=== PATIENT | female | born 1945 | race Hispanic/Latino ===

== ENCOUNTER → 2018-04-20 | Day surgery (SDC) | payer MEDICARE, OTHER ==
[2018-04-10 15:46] LABS: BASOPHILS % 0.4 % (0.0-1.0); EOSINOPHILS # (AUTO) 0.1 (0.0-0.4); EOSINOPHILS % 1.1 % (0.0-6.0); HEMOGLOBIN 14.4 g/dL (12.0-16.0); LYMPHOCYTES # (AUTO) 2.9 (1.0-3.2); LYMPHOCYTES % 40.3 % (18.0-39.1); MEAN CORPUSCULAR HEMOGLOBIN 29.9 pg (28-32); MEAN CORPUSCULAR HGB CONC 32.7 g/dL (31-35); MEAN CORPUSCULAR VOLUME 91.3 fL (81-99); MONOCYTES # (AUTO) 0.4 (0.2-0.8); MONOCYTES % 5.5 % (4.4-11.3); NEUTROPHILS # (AUTO) 3.7 (2.1-6.9); NEUTROPHILS % 52.6 % (38.7-80.0); PLATELET COUNT 241 x10e3/uL (140-360); RED BLOOD COUNT 4.82 x10e6/uL (3.6-5.1); RED CELL DISTRIBUTION WIDTH 12.3 % (11.7-14.4)
[2018-04-10 16:09] LABS: BLOOD UREA NITROGEN 13 mg/dL (7-26); BUN/CREATININE RATIO 16 (6-25); CALCIUM 9.8 mg/dL (8.4-10.2); CARBON DIOXIDE 30 mmol/L (22-29); CHLORIDE 102 mmol/L (98-107); CREATININE, SERUM 0.82 mg/dL (0.57-1.11); EST GLOMERULAR FILTRATION RATE > 60 ML/MIN (60-); GLUCOSE 90 mg/dL (74-118); SODIUM 143 mmol/L (136-145)
[~2018-04-20] MED LIST: ASPIRIN81 MG PO; BALANCED SALT SOLN (OPTH) 15 ML BTL IO ONE; BUPIVACAINE HC 0.75% PF 10ML VIAL INJ ONE; CALTRATE 600 W1 EACH PO; CALTRATE PLUS1 EACH; CENTRUM COMPLE1 EACH PO; CHONDR SU A NA/HYALUR SOD 1 EACH KIT IO ONE; CYCLOPENTOLATE HCL 2% OPTH SOLN 2 ML BTL OP ONE; EPINEPHRINE HCL 1:1000 1ML 1 MG/ML AMP ONE; FISH OIL PO; GATIFLOXACIN(OPTH) 5 ML LIQD ONE; INCRUSE INH; LIDOCAINE 2% /EPINEPHRINE 20 ML SDV INJ ONE; LIDOCAINE HCL 2% LOCAL INJ 5 ML SDV VIAL INJ ONE; LIDOCAINE HCL-PF 4% 40 MG/1 ML 5ML AMP ONE; LOSARTAN POTASS25 MG PO; METOPROLOL TART25 MG PO; MIDAZOLAM HCL 2 MG/2 ML VIAL ONE; OXYBUTYNIN CHLOR5 MG PO; PHENYLEPHRINE HCL 2 ML DROPS ONE; PILOCARPINE HCL(OPTH) 15 ML LIQD ONE; POVIDONE IODINE 5% (OPTH) 30 ML BTL ONE; PRAVASTATIN SOD40 MG PO; PROPOFOL IV EMULSION 10 MG/ML 20 ML VIAL ONE; TOBRAMYCIN/DEXAMETHASONE(OPTH) 3.5 GM TUBE ONE; VITAMIN D3 PO
--- OUTSIDE RECORDS SUMMARY | 2018-04-20 05:52 | XMS REPORT | Summary of Care ---
Author Author [facility] Organization [facility] Address Unknown Phone Unavailable Encounter HQ Encntr_kell(FIN) [id number] Date(s): 10/04/16 - 10/04/16 [facility] [address] [phone] [phone] Discharge Disposition: Home or Self Care Attending Physician: Noam Rojas MD Vital Signs No data available for this section Problem List No data available for this section Allergies, Adverse Reactions, Alerts No data available for this section Medications No data available for this section Results No data available for this section Immunizations No data available for this section Procedures No data available for this section Social History No data available for this section Assessment and Plan No data available for this section
--- OUTSIDE RECORDS SUMMARY | 2018-04-20 05:52 | XMS REPORT | Continuity of Care Document ---
Author Author [facility] Address Unknown Phone Unavailable Problems Problem Status Onset Date Classification Date Reported Comments Source Pain in left knee 03/30/2017 06/30/2017 QUE Young M25.562 - PAIN IN LEFT KNEE Active 03/24/2017 QUE Young Medications Medication Details Route Status Patient Instructions Ordering Provider Order Date Source Allergies, Adverse Reactions, Alerts Substance Category Reaction Severity Reaction type Status Date Reported Comments Source Immunizations Immunization Date Given Site Status Last Updated Comments Source Results Order Name Results Value Reference Range Date Interpretation Comments Source Knee 1-2 Views unilateral DX Knee 1-2 Views unilateral DX CLINICAL HISTORY : , - M25.562 Pain in left knee EXAM : 2 views of the left knee 03/24/2017 11:21 AM [employer] COMPARISON : none FINDINGS : There is no acute fracture or dislocation. Suspected generalized osteopenia. There is no focal soft tissue swelling. Suspected small suprapatellar effusion. The bony alignment is normal. IMPRESSION: No acute fracture or dislocation. Suspected small suprapatellar effusion. Correlate for internal derangement (or infection). Possible osteopenia -- consider DEXA. 03/24/2017 - - Read by: Ghassan Bernstein MD Dictated Date/time: 03/25/17 16:20 Electronically Signed by: Ghassan Bernstein MD 03/25/17 16:21 FINAL REPORT HODA Young Hip 2/3 views uni DX Hip 2/3 views uni DX CLINICAL HISTORY: - pain in right hip AGE: 70 years GENDER: Female TECHNIQUE: Right hip radiographs, 3 views. COMPARISON: None FINDINGS: There is no evidence of fracture or dislocation. Osseous mineralization is within normal limits. The femoral head is well directed within the acetabulum. There is no significant degenerative changes of the right hip. IMPRESSION: Unremarkable examination of the right hip.. 10/04/2016 - - Read by: Henrik Snow MD Dictated Date/time: 10/04/16 17:00 Electronically Signed by: Henrik Snow MD 10/04/16 17:01 FINAL REPORT QUE Young Knee 1-2 Views unilateral DX Knee 1-2 Views unilateral DX CLINICAL HISTORY: - pain in right knee AGE: 70 years GENDER: Female TECHNIQUE: Right knee radiographs, 2 views. COMPARISON: None FINDINGS: There is no evidence of fracture or dislocation. Osseous mineralization is within normal limits. No lytic or blastic lesions are seen. Mild subchondral cyst formation in the superior patellar apex.. No significant knee joint effusion is seen radiographically. IMPRESSION: Mild degenerative changes in the right knee patellofemoral compartment.. 10/04/2016 - - Read by: Henrik Snow MD Dictated Date/time: 10/04/16 16:59 Electronically Signed by: Henrik Snow MD 10/04/16 17:00 FINAL REPORT QUE Young Vital Signs Vital Sign Value Date Comments Source Encounters Location Location Details Encounter Type Encounter Number Reason For Visit Attending Provider ADM Date DC Date Status Source [facility] [place] [facility] [id number] Noam Rojas 10/04/2016 10/05/2016 UQE Young [facility] [place] [facility] [id number] Noam Rojas 03/24/2017 03/25/2017 HODA Young Procedures Procedure Code Date Perfomer Comments Source
--- OUTSIDE RECORDS SUMMARY | 2018-04-20 05:52 | XMS REPORT ---
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 Allergies, Adverse Reactions, Alerts Allergy Name Allergy Type Status Severity Reaction(s) Onset Date Inactive Date Treating Clinician Comments hydrocodone DA Active MO 2018-03-28 00:00:00 ibuprofen DA Active U 2018-03-28 00:00:00 cyclobenzaprine DA Active U 2018-03-28 00:00:00 hydrocodone DA Active MO 2018-02-21 00:00:00 ibuprofen DA Active U 2018-02-21 00:00:00 cyclobenzaprine DA Active U 2018-02-21 00:00:00 hydrocodone DA Active MO 2017-12-14 00:00:00 ibuprofen DA Active U 2017-12-14 00:00:00 cyclobenzaprine DA Active U 2017-12-14 00:00:00 hydrocodone DA Active MO 2017-11-15 00:00:00 ibuprofen DA Active U 2017-11-15 00:00:00 cyclobenzaprine DA Active U 2017-11-15 00:00:00 hydrocodone DA Active MO 2017-10-17 00:00:00 ibuprofen DA Active U 2017-10-17 00:00:00 cyclobenzaprine DA Active U 2017-10-17 00:00:00 Medications This patient has no known medications.
--- OUTSIDE RECORDS SUMMARY | 2018-04-20 05:52 | XMS REPORT | Summary of Care ---
Author Author [facility] [place] Organization [facility] [place] Address Unknown Phone Unavailable Encounter HQ Encntr_alias(FIN) [id number] Date(s): 03/24/17 - 03/24/17 [facility] [place] [address] [id number] [phone] Encounter Diagnosis Pain in left knee (Final) - 03/29/17 Discharge Disposition: Home or Self Care Attending [...]
[2018-04-20 08:35] VITALS: BP 151/88
== END | disposition home or self-care (01) ==
LOC: OR 05:50
PROVIDERS: ATTEND Ophthalmology
DX: H25.11 Age-related nuclear cataract, right eye (principal); J44.9 Chronic obstructive pulmonary disease, unspecified; I10 Essential (primary) hypertension; E78.5 Hyperlipidemia, unspecified; G47.33 Obstructive sleep apnea (adult) (pediatric); I49.1 Atrial premature depolarization; Z01.810 Encounter for preprocedural cardiovascular examination; Z01.812 Encounter for preprocedural laboratory examination; Z79.82 Long term (current) use of aspirin
CPT/HCPCS: 36415; 66982; 80048; 85025; 93005; J0171; J2001 ×2; J2250; J2704

== ENCOUNTER → 2021-12-22 | Outpatient (CLI) | payer MEDICARE ==
[~2021-12-22] MED LIST changes: -BALANCED SALT SOLN (OPTH) 15 ML BTL IO ONE; -BUPIVACAINE HC 0.75% PF 10ML VIAL INJ ONE; -CHONDR SU A NA/HYALUR SOD 1 EACH KIT IO ONE; -CYCLOPENTOLATE HCL 2% OPTH SOLN 2 ML BTL OP ONE; -EPINEPHRINE HCL 1:1000 1ML 1 MG/ML AMP ONE; -GATIFLOXACIN(OPTH) 5 ML LIQD ONE; -LIDOCAINE 2% /EPINEPHRINE 20 ML SDV INJ ONE; -LIDOCAINE HCL 2% LOCAL INJ 5 ML SDV VIAL INJ ONE; -LIDOCAINE HCL-PF 4% 40 MG/1 ML 5ML AMP ONE; -MIDAZOLAM HCL 2 MG/2 ML VIAL ONE; -PHENYLEPHRINE HCL 2 ML DROPS ONE; -PILOCARPINE HCL(OPTH) 15 ML LIQD ONE; -POVIDONE IODINE 5% (OPTH) 30 ML BTL ONE; -PROPOFOL IV EMULSION 10 MG/ML 20 ML VIAL ONE; -TOBRAMYCIN/DEXAMETHASONE(OPTH) 3.5 GM TUBE ONE
== END ==
LOC: MRI 12:34
PROVIDERS: ATTEND Psychiatry & Neurology Neurology
DX: G61.81 Chronic inflammatory demyelinating polyneuritis (principal); R41.3 Other amnesia; M21.371 Foot drop, right foot; M48.02 Spinal stenosis, cervical region; M43.02 Spondylolysis, cervical region; R29.898 Other symptoms and signs involving the musculoskeletal system
CPT/HCPCS: 70551; 72141